=== PATIENT | male | born 1965 | race Caucasian/White ===

== ENCOUNTER 2019-11-10 12:05 | Emergency (ER) | payer SELFPAY ==
--- NOTE | 2019-11-10 13:30 | RAD ---
Exam: Chest 2 views: HISTORY: Cough FINDINGS: Increased linear interstitial markings bilaterally with some hyperinflation evidence for chronic giles ge. Heart size is normal. No confluent lobar pneumonia. No overt edema. No pleural effusion. IMPRESSION: Hyperinflation chronic lung changes. No evidence for confluent pneumonia or other acute process.
== END 2019-11-10 14:09 | disposition home or self-care (01) ==
LOC: ERS 12:05
DX: J32.9 Chronic sinusitis, unspecified (principal); F17.210 Nicotine dependence, cigarettes, uncomplicated
CPT/HCPCS: 71046